=== PATIENT | female | born 1970 | race Caucasian/White ===

== ENCOUNTER → 2017-04-18 | Outpatient (CLI) | payer BC | LOC: GMAM 14:43 | PROVIDERS: ATTEND Family Medicine | DX: R31.21 Asymptomatic microscopic hematuria (principal) ==

== ENCOUNTER → 2017-07-12 | Outpatient (CLI) | payer BC ==
--- NOTE | 2017-07-14 06:20 | US ---
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 Findings: There are no gallstones within the gallbladder lumen. There is no gallbladder wall thickening or pericholecystic fluid. Negative sonographic Knight sign. The gallbladder is normal in size and contour. The extrahepatic common duct is normal in size measuring 5 mm. The liver is normal in size and contour. There is diffuse increased echogenicity of the liver consistent with fatty infiltration. There is no hepatic mass. There is no intrahepatic ductal dilatation. Visualized pancreas is unremarkable. There is no ascites. Evaluation of the right kidney demonstrates no hydronephrosis. Impression: Hepatic steatosis. Electronically signed by: Panchito Oconnor MD 07/14/2017 6:19 AM CDT
== END | disposition home or self-care (01) ==
LOC: GMAM 10:48
PROVIDERS: ATTEND Family Medicine
DX: Z13.0 Encounter for screening for diseases of the blood and blood-forming organs and certain disorders involving the immune mechanism (principal)

== ENCOUNTER → 2017-08-09 | Outpatient (CLI) | payer BC | END | disposition home or self-care (01) | LOC: GMAM 10:04 | PROVIDERS: ATTEND Family Medicine | DX: R94.5 Abnormal results of liver function studies (principal) ==